=== PATIENT | male | born 1945 | race Asian ===

== ENCOUNTER 2017-03-24 07:35 | Outpatient (CLI) | payer BC ==
[2017-03-24 08:45] LABS: BASOPHILS # (AUTO) 0.1 /CMM (0.0-0.2); EOSINOPHILS # (AUTO) 0.7 /CMM (0.0-0.7); EOSINOPHILS % (AUTO) 7.2 % (0.0-6.0); HEMATOCRIT 39 % (39-51); HEMOGLOBIN 13.1 g/dL (13.5-17.5); LYMPHOCYTES # (AUTO) 2.4 /CMM (0.8-4.8); LYMPHOCYTES % (AUTO) 26.2 % (20.0-44.0); MEAN CORPUSCULAR HEMOGLOBIN 29 PG (26.0-33.0); MEAN CORPUSCULAR HGB CONC 33 g/dl (31.0-36.0); MEAN CORPUSCULAR VOLUME 87 fL (80-96); MONOCYTES # (AUTO) 0.7 /CMM (0.1-1.30); MONOCYTES % (AUTO) 7.5 % (2.0-12.0); NEUTROPHILS # (AUTO) 5.3 /CMM (1.8-8.9); NEUTROPHILS % (AUTO) 58.1 % (43.0-81.0); PLATELET COUNT (AUTO) 174 /CMM (150-450); RDW COEFFICIENT OF VARIATION 13.4 (11.5-15.0); RED BLOOD CELL COUNT(AUTO) 4.48 MIL/uL (4.5-6.0); WHITE BLOOD COUNT (AUTO) 9.1 K/uL (4.3-11.0)
[2017-03-24 08:57] LABS: ALANINE AMINOTRANSFERASE 62 U/L (12-78); ALBUMIN 3.7 g/dL (3.4-5.0); ALKALINE PHOSPHATASE 97 U/L (46-116); ASPARTATE AMINOTRANSFERASE 52 U/L (15-37); BILIRUBIN,TOTAL 0.8 mg/dL (0.2-1.0); CARBON DIOXIDE 26 mmol/L (21-32); CHLORIDE 105 mmol/L (98-107); CREATININE 0.9 mg/dL (0.6-1.3); GLUCOSE 102 mg/dL (74-106); POTASSIUM 3.9 mmol/L (3.5-5.1); SODIUM SERUM 140 mmol/L (136-145); UREA NITROGEN, BLOOD 12 mg/dL (7-18)
[2017-03-24 09:00] LABS: IRON, SERUM 130 ug/dl (50-175); TOTAL IRON BINDING CAPACITY 297 ug/dl (250-450)
[2017-03-24 09:19] LABS: CHOLESTEROL 143 mg/dL (<200); FERRITIN 561 ng/mL (8-388); HDL CHOLESTEROL 37 mg/dL (40-60); LDL 82 mg/dL (0-99); PROSTATE SPECIFIC ANTIGEN SCR 1.74 ng/mL (0.00-4.00); THYROID STIMULATING HORMONE 1.998 uIU/mL (0.358-3.74); TRIGLYCERIDES 93 mg/dL (30-150); URIC ACID 6.3 mg/dL (2.6-7.2)
[2017-03-24 09:27] LABS: APPEARANCE,URINE CLEAR (CLEAR); BILIRUBIN,URINE NEGATIVE (NEGATIVE); BLOOD, URINE TRACE-INTA Ery/uL (NEGATIVE); COLOR,URINE YELLOW (YELLOW); KETONES,URINE NEGATIVE (NEGATIVE); LEUKOCYTE ESTERASE ,URINE NEGATIVE (NEGATIVE); NITRITE, URINE NEGATIVE (NEGATIVE); PROTEIN,URINE NEGATIVE (NEGATIVE); UGLUCOSE NEGATIVE (NEGATIVE); UROBILINOGEN,URINE 0.2 EU/dL (0.2)
[2017-03-24 10:35] LABS: BACTERIA,URINE None seen /HPF (None Seen); RBC,URINE 0-2 /HPF (0-2); SQUAMOUS EPITHELIAL CELL,UR Few /HPF (None Seen); WBC,URINE NONE SEEN /HPF (0-3)
[2017-03-26 11:09] LABS: *TESTOSTERONE, FREE (DIRECT) 2.1 pg/mL (6.6-18.1)
== END 2017-03-24 23:59 | disposition home or self-care (01) ==
LOC: LAB 07:35
PROVIDERS: ATTEND Legal Medicine
DX: R79.89 Other specified abnormal findings of blood chemistry (principal); Z00.01 Encounter for general adult medical examination with abnormal findings
CPT/HCPCS: 36415; 80053-TC; 80061-TC; 81000-TC; 82728-TC; 82746; 83540-TC; 84153-TC; 84402-TC; 84439-TC; 84443-TC; 84550-TC; 85025-TC

== ENCOUNTER 2017-03-27 08:51 | Outpatient (CLI) | payer BC | END 2017-03-27 23:59 | disposition home or self-care (01) | LOC: CARD 08:51 | PROVIDERS: ATTEND Legal Medicine | DX: I10 Essential (primary) hypertension (principal); I51.7 Cardiomegaly; R09.89 Other specified symptoms and signs involving the circulatory and respiratory systems | CPT/HCPCS: 93307-TC; 93880-TC ==

== ENCOUNTER 2017-07-20 18:34 | Inpatient (IN) | payer BC ==
[~2017-07-20] VITALS: Ht 160 cm; Wt 65.8 kg
--- NOTE | 2017-07-20 18:57 | NUR ---
PT BIB FROM DR BOCANEGRA OFFICE: LEFT EYE BLURRY VISION NOVA. PT AOX3 RR EVEN AND UNLABORED. NO SOB NOTED. NAD NOTED. NO NVD AT THIS TIME. PT PLACED ON MONITOR WAITING FOR MD BHATT.
--- NOTE | 2017-07-20 18:58 | NUR ---
CALLED PHARM FOR IV MEDICATION, SPOKE TO
[2017-07-20] MEDS ORDERED: methylPREDNISolone SOD SUCC 1,000 MG in IV NS 0.9% 250 ML IV ONE (19:00)
--- NOTE | 2017-07-20 19:05 | NUR ---
VISUAL ACUITY: LEFT EYE UNABLE TO SEE. RIGHT EYE 20/30 BOTH EYES 20/30
--- NOTE | 2017-07-20 19:13 | NUR ---
LAB AT BEDSIDE FOR BLOOD DRAW.
[2017-07-20 19:18] LABS: BASOPHILS # (AUTO) 0.1 /CMM (0.0-0.2); BASOPHILS % (AUTO) 0.7 % (0.0-2.0); EOSINOPHILS # (AUTO) 0.7 /CMM (0.0-0.7); EOSINOPHILS % (AUTO) 7.9 % (0.0-6.0); HEMATOCRIT 41 % (39-51); HEMOGLOBIN 13.4 g/dL (13.5-17.5); LYMPHOCYTES # (AUTO) 2.5 /CMM (0.8-4.8); LYMPHOCYTES % (AUTO) 27.6 % (20.0-44.0); MEAN CORPUSCULAR HEMOGLOBIN 29 PG (26.0-33.0); MEAN CORPUSCULAR HGB CONC 33 g/dl (31.0-36.0); MEAN CORPUSCULAR VOLUME 88 fL (80-96); MONOCYTES # (AUTO) 0.7 /CMM (0.1-1.30); MONOCYTES % (AUTO) 8.2 % (2.0-12.0); NEUTROPHILS # (AUTO) 5.1 /CMM (1.8-8.9); NEUTROPHILS % (AUTO) 55.6 % (43.0-81.0); PLATELET COUNT (AUTO) 195 /CMM (150-450); RDW COEFFICIENT OF VARIATION 12.4 (11.5-15.0); RED BLOOD CELL COUNT(AUTO) 4.64 MIL/uL (4.5-6.0); WHITE BLOOD COUNT (AUTO) 9.1 K/uL (4.3-11.0)
[2017-07-20 19:26] LABS: CALCIUM, SERUM 8.8 mg/dL (8.5-10.1); CARBON DIOXIDE 27 mmol/L (21-32); CHLORIDE 102 mmol/L (98-107); CREATININE 0.8 mg/dL (0.6-1.3); GLUCOSE 125 mg/dL (74-106); POTASSIUM 3.4 mmol/L (3.5-5.1); SODIUM SERUM 136 mmol/L (136-145); UREA NITROGEN, BLOOD 13 mg/dL (7-18)
[2017-07-20] MEDS ORDERED: ASPI-605 PO (19:56)
[2017-07-20] MEDS ORDERED: SIMV20TA6 PO (19:56)
--- NOTE | 2017-07-20 20:04 | NUR ---
ORDERS RECEIVED BY DR ABRAHAM.
--- NOTE | 2017-07-20 20:38 | NUR ---
REPORT GIVEN TO DONITA SIMS FOR
--- NOTE | 2017-07-20 20:44 | NUR ---
PT TRANSFERRED TO [facility] 208-2 VIA WC
--- NOTE | 2017-07-20 20:45 | NUR ---
ADMISSION NOTES RECEIVED PATIENT FROM ER ACCOMPANIED BY HIS WITH DX OF LEFT EYE BLURRED VISION. NO ACUTE DISTRESS, RESP EVEN & NON LABORED. NO C/O EYE PAIN NOTED AT THIS TIME, BUT HAS BLURRED VISION TO READ TO LEFT EYE. AMBULATORY, USES BRP. EXPLAINED ABOUT FALL PREVENTION & BED REST MUCH POSSIBLE FOR SAFETY. PATIENT VERBALIZED UNDERSTANDING. IV ACCESS TO LEFT WRIST, INTACT PATENT. BODY ASSESSMENT DONE, MILD EDEMA TO RIGHT FOOT NOTED. ELEVATED THE EXTREMITY. INVENTORY ACCOUNTED FOR & DOCUMENTED. ALL NEEDS ATTENDED TO & MET. BED IN LOW LOCKED POSITION. CALL LIGHT WITHIN REACH. AT BEDSIDE. WILL CONTINUE TO MONITOR.
[2017-07-20 20:50] VITALS: BP 137/74
[2017-07-20] MEDS ORDERED: ONDANSETRON HCL/PF 4 MG/2 ML VIAL IVP PRN (21:00)
[2017-07-20] MEDS ORDERED: HYDROCODONE/APAP 5/325MG 1 EACH TABLET PO PRN (21:00)
[2017-07-20] MEDS ORDERED: ACETAMINOPHEN 325 MG TABLET PO PRN (21:00)
[2017-07-20] MEDS: IV NS 0.9% 1,000 ML IV PRN (22:00)
--- NOTE | 2017-07-20 22:00 | NUR ---
MS RN NOTES IV FLUIDS STARTED ORDERED BY MD. IV CATHETER PATENCY CHECKED WITH NS. NO S/S OF INFILTRATION/INFECTION NOTED. WILL MONITOR CLOSELY.
[2017-07-21] MEDS: methylPREDNISolone SOD SUCC 125 MG/2ML VIAL IV SCH ×5 (00:10→23:56)
--- NOTE | 2017-07-21 03:35 | NUR ---
MS RN NOTES PATIENT NOTED TO BE SLEEPING COMFORTABLY. IV NS RUNNING AT 75 ML/HR, NO S/S OF INFECTION NOTED AT IV SITE. NO C/O PAIN NOTED.
--- NOTE | 2017-07-21 06:05 | NUR ---
RN NOTES: LEFT A MESSAGE , MRI EXT [id number], UNABLE TO PLACE THE ORDER, NOT IN THE SELECTION, LEFT A MESSAGE INFORM PER MD ORDER, PT WILL HAVE MRI OF THE LEFT EYE WITH CONTRAST
--- NOTE | 2017-07-21 06:26 | NUR ---
RN NOTES: CONTACTED [facility] MRI ORDER, BUT THEY STATED THEY DO NOT KNOW HOW TO ORDER IT, LEFT A MESSAGE AGAIN IN MRI DEPT, AWAITING FOR CALL BACK
[2017-07-21 06:39] LABS: HEMATOCRIT 41 % (39-51); HEMOGLOBIN 13.5 g/dL (13.5-17.5); LYMPHOCYTES # (AUTO) 1.1 /CMM (0.8-4.8); LYMPHOCYTES % (AUTO) 15.9 % (20.0-44.0); MEAN CORPUSCULAR HEMOGLOBIN 29 PG (26.0-33.0); MEAN CORPUSCULAR HGB CONC 33 g/dl (31.0-36.0); MEAN CORPUSCULAR VOLUME 88 fL (80-96); MONOCYTES % (AUTO) 0.4 % (2.0-12.0); NEUTROPHILS # (AUTO) 5.9 /CMM (1.8-8.9); NEUTROPHILS % (AUTO) 83.7 % (43.0-81.0); PLATELET COUNT (AUTO) 185 /CMM (150-450); RDW COEFFICIENT OF VARIATION 13.1 (11.5-15.0); RED BLOOD CELL COUNT(AUTO) 4.62 MIL/uL (4.5-6.0)
--- NOTE | 2017-07-21 06:40 | NUR ---
rn notes: dami from mri came to help place the order for mri left eye with contrast
[2017-07-21 06:45] LABS: CARBON DIOXIDE 23 mmol/L (21-32); CHLORIDE 104 mmol/L (98-107); CREATININE 0.9 mg/dL (0.6-1.3); GLUCOSE 152 mg/dL (74-106); POTASSIUM 3.9 mmol/L (3.5-5.1); SODIUM SERUM 139 mmol/L (136-145); UREA NITROGEN, BLOOD 13 mg/dL (7-18)
--- NOTE | 2017-07-21 07:00 | NUR ---
MS RN CLOSING NOTES PATIENT SLEPT WELL AT NIGHT. NO C/O PAIN TO LEFT EYE, NO C/O OTHER PAIN NOTED. ON IV FLUIDS NS 75 ML/HR, IV ACCESS INTACT PATENT. ON BED REST PRN. AMBULATORY, CONTINENT & USES BRP. HIGH SCHOOL COORDINATOR WILL F/U WITH PATIENT AT [facility] PER MD NOTES. MRI LEFT EYE WILL BE DONE WITH CONTRAST TODAY. PT IS AWARE. BED IN LOW LOCKED POSITION. CALL LIGHT WITHIN REACH. WILL ENDORSE TO AM SHIFT FOR CONTINUITY OF CARE.
--- NOTE | 2017-07-21 07:23 | NUR ---
RN OPEN NOTES RECEIVED REPORT FROM PAWN SHOP KEEPER NURSE. PATIENT IS ALERT AND ORIENTED TO NAME, PLACE AND TIME. LEFT EYE STILL BLURRY. PUPILS ARE EQUAL, ROUND AND REACTED TO LIGHT. PUPILS SIZE 1MM. AT BEDSIDE. NO SIGNS AND SYMPTOMS OF DISTRESS. BED IN LOW POSITION, LOCKED AND TWO SIDE RAILS ARE UP. CALL LIGHT WITHIN REACH. WILL CONTINUE TO ASSESS AND MONITOR PATIENT THROUGHOUT MY SHIFT
[2017-07-21 08:00] VITALS: BP 125/70
[2017-07-21] MEDS: PANTOPRAZOLE 40 MG VIAL IV SCH (08:59)
--- NOTE | 2017-07-21 10:13 | NUR ---
PATIENT IS OFF THE FLOOR FRO MRI
--- NOTE | 2017-07-21 11:45 | NUR ---
PATIENT RETURNED TO UNIT
[2017-07-21] MEDS: IV NS 0.9% 1,000 ML IV PRN ×2 (11:49→23:56)
[2017-07-21] MEDS ORDERED: GADOVERSETAMIDE 5 MMOL/10 ML VIAL ONE (13:16)
[2017-07-21] MEDS ORDERED: GADOVERSETAMIDE 2.5 MMOL/5 ML VIAL ONE (13:16)
[2017-07-21 16:00] VITALS: BP 99/62
--- NOTE | 2017-07-21 16:49 | NUR ---
DR FORBES AT BEDSIDE
--- NOTE | 2017-07-21 17:10 | NUR ---
DR FORBES EVALUATED PATIENT AND ORDERS ARE THE FOLLOWIN. OBTAIN CONSENT TO: LEFT TEMPORAL ARTERY BIOPSY ON 07/24/2017 (24 HOURS PRIOR TO SURGERY) CONSENT IS IN THE CHART, PLEASE HAVE THE PATIENT SIGNED ON MONDAY 2. NPO SINCE MIDNIGHT 07/24 EXCEPT MEDS 3. IV NS AT 75ML/HR FROM MIDNIGHT 07/24 4. IF PATIENT DISCHARGED - GO TO ADMITTING 07/24 5. BILATERALLY CAROTID DUPLEX
--- NOTE | 2017-07-21 17:13 | NUR ---
DR ABRAHAM PAGED TO RECONCILE HOME MEDICATION
--- NOTE | 2017-07-21 18:35 | NUR ---
CALLED DR ABRAHAM OFFICE. REFEREED TO [facility]
--- NOTE | 2017-07-21 18:38 | NUR ---
CALLED [facility]. DR ROSS IS TMD TEACHER. WILL PAGE DR ROSS REGARDING HOME MEDS
--- NOTE | 2017-07-21 18:43 | NUR ---
RN CLOSING NOTES PATIENT IS IN BED, ALERT AND ORIENTED TO NAME, PLACE AND TIME. AT BEDSIDE. NO SIGNS AND SYMPTOMS OF DISTRESS. ON IV FLUIDS NS 75 ML/HR, IV ACCESS INTACT PATENT. ON BED REST PRN. AMBULATORY, CONTINENT & USES BRP. CAROTID DUPLEX INAGING PENDING. SURGERY ON MONDAY (ORDERS DOCUMENTED AND IN THE CHART FROM DR FORBES) BED IN LOW LOCKED POSITION. CALL LIGHT WITHIN REACH. WILL ENDORSE TO PM SHIFT FOR CONTINUITY OF CARE.
--- NOTE | 2017-07-21 18:43 | NUR ---
PAGED DR ROSS
--- NOTE | 2017-07-21 19:00 | NUR ---
MS RN OPENING NOTES RECEIVE PT IN BED, PT A/O X4, PT NO ACUTE DISTRESS NOTED. TOLERATING ROOM AIR 98% BREATHING EVEN AND UNLABORED, HEAD OF BED ELEVATED FOR BETTER LUNG EXPANSION AND GOOD CIRCULATION. SAFETY MEASURES IN PLACE, BED LOCKED AND IN LOWEST POSITION, CALL LIGHT IN REACH. WILL CONTINUE TO MONITOR.
--- NOTE | 2017-07-21 19:11 | NUR ---
PAGED DR ENG ([facility] PLASTICS TECHNICIAN) TO RECONCILE PATIENT HOME MEDS
[2017-07-21 20:00] VITALS: BP 101/56
[2017-07-22] MEDS: methylPREDNISolone SOD SUCC 125 MG/2ML VIAL IV SCH ×4 (05:30→23:44)
--- NOTE | 2017-07-22 06:37 | NUR ---
MS RN CLOSING NOTES ASLEEP AND EASILY AWAKEN, HEAD OF BED ELEVATED FOR BETTER LUNG EXPANSION AND GOOD CIRCULATION, IN STABLE CONDITION, TOLERATING ROOM AIR 02 SAT 98% NOT IN RESPIRATORY DISTRESS, GOOD SKIN CARE PROVIDED. RESPIRATIONS EVEN AND UNLABORED, AFEBRILE, NEEDS ATTENDED AND ANTICIPATED, KEPT CLEAN AND DRY AND COMFORTABLE, NURSING CARE RENDERED. FREQUENT VISUAL CHECK DONE EVERY 2 HOURS FOR SAFETY SAFE HAZARD FREE ENVIRONMENT PROVIDED. CALL LIGHT WITHIN EASY TO REACH, ON LOW BED AT ALL TIMES TO ENSURE SAFETY, WILL ENDORSE TO THE NEXT SHIFT CONTINUE PLAN OF CARE
--- NOTE | 2017-07-22 07:30 | NUR ---
RN AM NOTES RECEIVE PT IN BED, PT A/O X4, PT NO ACUTE DISTRESS NOTED. TOLERATING ROOM AIR, BREATHING EVEN AND UNLABORED, DENIES PAIN, NS AT 75 ML/HR INFUSING WELL TO L WRIST, SITE CLEAR, CARDIAC DIET, AMBULATES, STEADY GAIT, SAFETY MEASURES IN PLACE, BED LOCKED AND IN LOWEST POSITION, CALL LIGHT IN REACH. WILL CONTINUE TO MONITOR.
[2017-07-22 08:00] VITALS: BP 110/62
[2017-07-22] MEDS: PANTOPRAZOLE 40 MG VIAL IV SCH (08:56)
--- NOTE | 2017-07-22 09:30 | NUR ---
MS RN NOTES DUE MEDS GIVEN.
[2017-07-22] MEDS: IV NS 0.9% 1,000 ML IV PRN (12:28)
[2017-07-22 16:00] VITALS: BP_SYST 90; BP_DIAS 42; BP_DIAS 45
[2017-07-22] MEDS ORDERED: IV NS 0.9% 500 ML IV ONE (16:30)
[2017-07-22] MEDS ORDERED: IV NS 0.9% 500 ML BAG IV ONE (16:30)
[2017-07-22 17:18] VITALS: BP 103/61
--- NOTE | 2017-07-22 17:19 | NUR ---
RN NOTES PATIENT BP HAS STABILIZED BACK TO BASELINE AFTER 500ML BOLUS.
[2017-07-22 18:00] VITALS: BP 103/61
--- NOTE | 2017-07-22 19:00 | NUR ---
MS RN NOTES PATIENT IS RESTING COMFORTABLY. NOT IN ANY DISTRESS. AT BEDSIDE. DUE MEDS GIVEN. ALL NEEDS MET. NO OTHER SIGNIFICANT CHANGE IN CONDITION. WILL ENDORSE TO NEXT SHIFT FOR JOSE.
--- NOTE | 2017-07-22 19:00 | NUR ---
MS RN OPENING NOTES RECEIVE PT IN BED, PT A/O X 4, TOLERATING ROOM AIR 100% HEAD OF BED ELEVATED FOR BETTER LUNG EXPANSION AND GOOD CIRCULATION. BREATHING EVEN AND UNLABORED, IN STALE CONDITION SAFETY MEASURES IN PLACE, BED LOCKED AND IN LOWEST POSITION, CALL LIGHT IN REACH. WILL CONTINUE TO MONITOR.
[2017-07-22 20:00] VITALS: BP 108/55
[2017-07-22 20:02] VITALS: BP 108/55
[2017-07-23] MEDS: IV NS 0.9% 1,000 ML IV PRN ×2 (03:07→16:19)
[2017-07-23 05:20] VITALS: BP 107/61
[2017-07-23] MEDS: methylPREDNISolone SOD SUCC 125 MG/2ML VIAL IV SCH ×3 (05:29→17:07)
--- NOTE | 2017-07-23 06:40 | NUR ---
MS RN CLOSING NOTES ASLEEP IN BED, COMFORTABLY . EASILY AWAKEN, HEAD OF BED ELEVATED FOR BETTER LUNG EXPANSION AND GOOD CIRCULATION, TOLERATING ROOM AIR 02 SAT 100% IN STABLE CONDITION, NOT IN RESPIRATORY DISTRESS, RESPIRATIONS EVEN AND UNLABORED, GOOD SKIN CARE PROVIDED, KEPT CLEAN AND DRY AND COMFORTABLE, AFEBRILE, NEEDS ATTENDED AND ANTICIPATED, NURSING CARE RENDERED. FREQUENT VISUAL CHECK DONE EVERY 2 HOURS. SAFETY SAFE HAZARD FREE ENVIRONMENT PROVIDED. CALL LIGHT WITHIN EASY TO REACH, ON LOW BED AT ALL TIMES TO ENSURE SAFETY, WILL ENDORSE TO THE NEXT SHIFT CONTINUE PLAN OF CARE
[2017-07-23 07:19] LABS: EOSINOPHILS # (AUTO) 0.1 /CMM (0.0-0.7); EOSINOPHILS % (AUTO) 0.3 % (0.0-6.0); HEMATOCRIT 37 % (39-51); HEMOGLOBIN 12.1 g/dL (13.5-17.5); LYMPHOCYTES % (AUTO) 6.2 % (20.0-44.0); MEAN CORPUSCULAR HEMOGLOBIN 29 PG (26.0-33.0); MEAN CORPUSCULAR HGB CONC 33 g/dl (31.0-36.0); MEAN CORPUSCULAR VOLUME 90 fL (80-96); MONOCYTES # (AUTO) 0.1 /CMM (0.1-1.30); MONOCYTES % (AUTO) 0.5 % (2.0-12.0); NEUTROPHILS # (AUTO) 15.1 /CMM (1.8-8.9); RDW COEFFICIENT OF VARIATION 13.4 (11.5-15.0); RED BLOOD CELL COUNT(AUTO) 4.16 MIL/uL (4.5-6.0); WHITE BLOOD COUNT (AUTO) 16.2 K/uL (4.3-11.0)
[2017-07-23 07:23] LABS: CARBON DIOXIDE 23 mmol/L (21-32); CHLORIDE 109 mmol/L (98-107); CREATININE 0.8 mg/dL (0.6-1.3); GLUCOSE 122 mg/dL (74-106); MAGNESIUM 2.3 mg/dL (1.8-2.4); PHOSPHORUS 2.7 mg/dL (2.5-4.9); POTASSIUM 3.7 mmol/L (3.5-5.1); SODIUM SERUM 142 mmol/L (136-145); UREA NITROGEN, BLOOD 16 mg/dL (7-18)
[2017-07-23 08:00] VITALS: BP 141/68
[2017-07-23] MEDS: PANTOPRAZOLE 40 MG VIAL IV SCH (08:53)
[2017-07-23 09:18] LABS: PLATELET COUNT (AUTO) 254 /CMM (150-450)
--- NOTE | 2017-07-23 09:30 | NUR ---
MS RN NOTES DUE MEDS GIVEN.
[2017-07-23 16:00] VITALS: BP 113/58
[2017-07-23 18:00] VITALS: BP 113/58
--- NOTE | 2017-07-23 18:26 | NUR ---
MS RN CLOSING NOTES PATIENT IS RESTING COMFORTABLY. NOT IN ANY DISTRESS. AT BEDSIDE. DUE MEDS GIVEN. ALL NEEDS MET. NO OTHER SIGNIFICANT CHANGE IN CONDITION. WILL ENDORSE TO NEXT SHIFT FOR JOSE. NPO POST MIDNIGHT. FOR TEMPORAL BIOPSY IN AM. CONSENT SIGNED.
--- NOTE | 2017-07-23 19:00 | NUR ---
MS RN OPENING NOTES PT IN BED RESTING, PT A/O X 4, IN STABLE CONDITION. TOLERATING ROOM AIR 100% BREATHING EVEN AND UNLABORED, SAFETY MEASURES IN PLACE, BED LOCKED AND IN LOWEST POSITION, CALL LIGHT IN REACH. WILL CONTINUE TO MONITOR.
[2017-07-23 20:00] VITALS: BP 127/48
[2017-07-24] MEDS: methylPREDNISolone SOD SUCC 125 MG/2ML VIAL IV SCH ×4 (00:28→21:17)
[2017-07-24] MEDS: IV NS 0.9% 1,000 ML IV PRN ×2 (05:29→23:25)
--- NOTE | 2017-07-24 06:33 | NUR ---
MS RN CLOSING NOTES PLACE IN BED ASLEEP NOW BUT EASILY AWAKEN. STABLE CONDITION. HEAD OF BED ELEVATED FOR BETTER LUNG EXPANSION AND GOOD CIRCULATION, MAINTAINS NPO AT MIDNIGHT TOLERATING ROOM AIR 02 SAT 100% RESPIRATIONS EVEN AND UNLABORED, NOT IN RESPIRATORY DISTRESS, AFEBRILE, KEPT CLEAN AND DRY AND COMFORTABLE, NEEDS ATTENDED AND ANTICIPATED, NURSING CARE RENDERED. SAFETY SAFE HAZARD FREE ENVIRONMENT PROVIDED. CALL LIGHT WITHIN EASY TO REACH, ON LOW BED AT ALL TIMES TO ENSURE SAFETY, WILL ENDORSE TO THE NEXT SHIFT CONTINUE POC.
[2017-07-24 07:19] LABS: BASOPHILS % (AUTO) 0.1 % (0.0-2.0); EOSINOPHILS % (AUTO) 0.3 % (0.0-6.0); HEMATOCRIT 37 % (39-51); HEMOGLOBIN 12.2 g/dL (13.5-17.5); LYMPHOCYTES # (AUTO) 1.2 /CMM (0.8-4.8); LYMPHOCYTES % (AUTO) 8.6 % (20.0-44.0); MEAN CORPUSCULAR HEMOGLOBIN 29 PG (26.0-33.0); MEAN CORPUSCULAR HGB CONC 33 g/dl (31.0-36.0); MEAN CORPUSCULAR VOLUME 89 fL (80-96); MONOCYTES # (AUTO) 0.3 /CMM (0.1-1.30); MONOCYTES % (AUTO) 2.3 % (2.0-12.0); NEUTROPHILS # (AUTO) 12.3 /CMM (1.8-8.9); NEUTROPHILS % (AUTO) 88.7 % (43.0-81.0); PLATELET COUNT (AUTO) 170 /CMM (150-450); RDW COEFFICIENT OF VARIATION 13.5 (11.5-15.0); RED BLOOD CELL COUNT(AUTO) 4.16 MIL/uL (4.5-6.0); WHITE BLOOD COUNT (AUTO) 13.9 K/uL (4.3-11.0)
--- NOTE | 2017-07-24 07:19 | NUR ---
MS RN OPENING NOTES RECEIVED PT AWAKE IN BED IN NO ACUTE SIGNS OF DISTRESS WITH AT BEDSIDE. A/O X4, VERBALLY RESPONSIVE, NO C/O PAIN OR DISCOMFORTS AT THIS TIME. ON ROOM AIR, BREATHING EVEN AND UNLABORED. IV ACCESS ON LEFT AC INTACT AND PATENT WITH IVF OF NS @ 75 ML/HR INFUSING WELL, NO SIGNS OF INFILTRATION NOTED. SAFETY MEASURES IN PLACED. BED LOCKED AND IN LOWEST POSITION, CALL LIGHT IN REACH. WILL CONTINUE TO MONITOR PT ACCORDINGLY.
[2017-07-24 07:42] LABS: CALCIUM, SERUM 7.6 mg/dL (8.5-10.1); CARBON DIOXIDE 24 mmol/L (21-32); CHLORIDE 108 mmol/L (98-107); CREATININE 0.8 mg/dL (0.6-1.3); GLUCOSE 118 mg/dL (74-106); MAGNESIUM 2.3 mg/dL (1.8-2.4); PHOSPHORUS 2.9 mg/dL (2.5-4.9); POTASSIUM 3.6 mmol/L (3.5-5.1); SODIUM SERUM 142 mmol/L (136-145); UREA NITROGEN, BLOOD 15 mg/dL (7-18)
[2017-07-24 08:00] VITALS: BP 131/88
[2017-07-24] MEDS: ASPIRIN EC 81 MG TABLET.DR PO SCH (09:00)
[2017-07-24] MEDS: PANTOPRAZOLE 40 MG VIAL IV SCH (09:00)
[2017-07-24 09:01] LABS: CHOLESTEROL 137 mg/dL (<200); HDL CHOLESTEROL 46 mg/dL (40-60); LDL 79 mg/dL (0-99); TRIGLYCERIDES 92 mg/dL (30-150)
--- NOTE | 2017-07-24 12:05 | NUR ---
RN NOTES PT FOR MRI OF BRAIN WITH OR WITHOUT CONTRAST. EXPLAINED PROCEDURE TO PT AND VERBALIZED UNDERSTANDING. CONSENT AND MRI CHECKLIST SIGNED BY PT.
--- NOTE | 2017-07-24 15:27 | NUR ---
RN NOTES PT TRANSPORTED FROM UNIT TO O.R./SURGERY VIA HIS BED BY O.R. STAFF FOR TEMPORAL ARTERY BIOPSY BY DR YU. WILL BE WAITING IN PT ROOM.
[2017-07-24] MEDS ORDERED: MIDAZOLAM HCL 2 MG/2ML VIAL ONE (16:21)
[2017-07-24] MEDS ORDERED: FENTANYL PF 100MCG/2ML AMPUL ONE (16:21)
[2017-07-24] MEDS ORDERED: LIDOCAINE 2% 50 ML MDV IJ ONE (17:28)
[2017-07-24 17:45] VITALS: BP 131/74
--- NOTE | 2017-07-24 17:50 | NUR ---
RN NOTES PT RETURNED FROM SURGERY S/P TEMPORAL ARTERY BIOPSY. AWAKE, A/O X4 IN NO ACUTE SIGNS OF DISTRESS. V/S TAKEN BP 131/71, R 18, P 52, T 97.2 AND SP02 97%. INCISION TO LEFT TEMPORAL TO KEEP OPEN TO AIR PER O.R. NURSE. PHOTO TAKEN AND FILED ON CHART. DR YU ORDERED TO RESUME ALL PRE-OP MEDS, DIET AND GIVE NORCO 5/325MH Q6HRS PRN FOR PAIN. AT BEDSIDE AND AWARE WILL CONTINUE TO MONITOR.
--- NOTE | 2017-07-24 18:10 | NUR ---
RN NOTES MRI OF BRAIN WITH OR WITHOUT OF BRAIN TO BE DONE TOMORROW PER MRI TEACH. MANUFACTURING MILLWRIGHT SPOKE TO PT AND STATED HE WAS TIRED TO HAVE THE MRI DONE AT THIS TIME. MANUFACTURING MILLWRIGHT CALLED AND LEFT MESSAGE TO DR MAHMOOD. WILL CONTINUE TO MONITOR
[2017-07-24 18:15] VITALS: BP 134/76
--- NOTE | 2017-07-24 18:28 | NUR ---
RN NOTES VITAL SIGNS MONITORED CLOSELY AND WRITTEN ON VITALS SIGNS SHEET. V/S SHEET WILL BE FILED ON CHART AFTER. WILL ENDORSED TO SEEDLING SORTER NURSE TO CONTINUE MONITORING PT.
--- NOTE | 2017-07-24 18:51 | NUR ---
MS RN CLOSING NOTES PT ASLEEP IN BED AT THIS TIME, EASILY AWAKENS WITH AT BEDSIDE. A/O X4, VERBALLY RESPONSIVE, NO C/O PAIN AT THIS TIME. ALL NEEDS AND CARE ATTENDED WELL. S/P BIOPSY OF TEMPORAL ARTERY, NO BLEEDING OR SWELLING TO INCISIONAL SITE NOTED. ON ROOM AIR, TOLERATING WELL WITH NO SOB NOTED. IV ACCESS ON LEFT AC INTACT AND PATENT WITH IVF OF NS @ 75 ML/HR INFUSING WELL, NO SIGNS OF INFILTRATION NOTED. ALL SAFETY MEASURES KEPT IN PLACED. BED LOCKED AND IN LOWEST POSITION, CALL LIGHT IN REACH. WILL ENDORSED TO OPERATIONS COORDINATOR NURSE FOR JOSE..
--- NOTE | 2017-07-24 19:45 | NUR ---
MS/RN OPENING NOTES PT RECEIVED RESTING IN BED. SEMI FOWLERS POSITION. EYES CLOSED BUT AROUSABLE TO NAME. AT BEDSIDE. ON 1L O2 VIA NC, BREATHING EVEN AND UNLABORED. S/P BIOPSY OF LEFT TEMPORAL ARTERY. INCISION OPEN TO AIR, CLEAN AND DRY. NO SIGNS OF BLEEDING OR SWELLING NOTED. PT DENIES PAIN. BED IN LOW/LOCKED POSITION WITH CALL LIGHT IN REACH. IV TO LAC RUNNING IVF ORDERED. SIDE RAILS UPX3. WILL CONTINUE TO MONITOR
[2017-07-24 20:00] VITALS: BP 133/76
[2017-07-24 20:46] VITALS: BP 133/76
[2017-07-25] MEDS: methylPREDNISolone SOD SUCC 125 MG/2ML VIAL IV SCH ×3 (05:18→21:37)
[2017-07-25 06:46] LABS: BASOPHILS % (AUTO) 0.1 % (0.0-2.0); HEMATOCRIT 37 % (39-51); HEMOGLOBIN 12.3 g/dL (13.5-17.5); LYMPHOCYTES # (AUTO) 1.3 /CMM (0.8-4.8); LYMPHOCYTES % (AUTO) 11.5 % (20.0-44.0); MEAN CORPUSCULAR HEMOGLOBIN 30 PG (26.0-33.0); MEAN CORPUSCULAR HGB CONC 34 g/dl (31.0-36.0); MEAN CORPUSCULAR VOLUME 88 fL (80-96); MONOCYTES # (AUTO) 0.4 /CMM (0.1-1.30); MONOCYTES % (AUTO) 3.5 % (2.0-12.0); NEUTROPHILS # (AUTO) 9.9 /CMM (1.8-8.9); NEUTROPHILS % (AUTO) 84.9 % (43.0-81.0); PLATELET COUNT (AUTO) 167 /CMM (150-450); RDW COEFFICIENT OF VARIATION 13.6 (11.5-15.0); RED BLOOD CELL COUNT(AUTO) 4.15 MIL/uL (4.5-6.0); WHITE BLOOD COUNT (AUTO) 11.7 K/uL (4.3-11.0)
[2017-07-25 07:13] LABS: CALCIUM, SERUM 7.6 mg/dL (8.5-10.1); CARBON DIOXIDE 23 mmol/L (21-32); CHLORIDE 106 mmol/L (98-107); CREATININE 0.8 mg/dL (0.6-1.3); GLUCOSE 136 mg/dL (74-106); MAGNESIUM 2.4 mg/dL (1.8-2.4); POTASSIUM 3.6 mmol/L (3.5-5.1); SODIUM SERUM 141 mmol/L (136-145); UREA NITROGEN, BLOOD 21 mg/dL (7-18)
--- NOTE | 2017-07-25 07:15 | NUR ---
MS/RN CLOSING NOTES PT AWAKE, ON 2L O2 VIA NC, BREATHING EVEN AND UNLABORED. AT BEDSIDE. DENIES SOB OR PAIN. LEFT TEMPORAL INCISION SITE LEFT OPEN TO AIR. NO ACTIVE BLEEDING OR SWELLING NOTED. CONSENT AND MRI CHECKLIST SIGNED AND FLAGGED IN CHART. IV TO LEFT AC PATENT AND INTACT RUNNING IVF ORDERED. MADE PT COMFORTABLE DURING SHIFT. NO SIGNIFICANT CHANGES OVERNIGHT. ALL NEEDS MET. BED IN LOW/LOCKED POSITION WITH CALL LIGHT IN REACH. SIDE RAILS UPX2. WILL ENDORSE TO AM SHIFT JOSE.
--- NOTE | 2017-07-25 07:29 | NUR ---
MS RN OPENING NOTES RECEIVED PT AWAKE IN BED WITH AT BEDSIDE. HOB ELEVATED. A/O X4, VERBALLY RESPONSIVE, NO NO C/O PAIN OR DISCOMFORTS AT THIS TIME. INCISION SITE ON LEFT TEMPORAL OPEN TO AIR, NO ACTIVE BLEEDING OR SWELLING NOTED. PT FOR MRI OF BRAIN W OR W/O CONTRAST TODAY. ON ROOM AIR, BREATHING EVEN AND UNLABORED. IV ACCESS ON LEFT AC INTACT AND PATENT WITH IVF OF NS @ 75 ML/HR INFUSING WELL, NO SIGNS OF INFILTRATION NOTED. SAFETY MEASURES IN PLACED. BED LOCKED AND IN LOWEST POSITION WITH SIDE-RAILS UP X2. CALL LIGHT WITHIN REACH. WILL CONTINUE TO MONITOR PT ACCORDINGLY.
[2017-07-25 08:00] VITALS: BP 136/76
[2017-07-25] MEDS: ASPIRIN EC 81 MG TABLET.DR PO SCH (08:45)
[2017-07-25] MEDS: PANTOPRAZOLE 40 MG VIAL IV SCH (08:45)
--- NOTE | 2017-07-25 09:48 | NUR ---
RN NOTES PATIENT WENT DOWN FOR MRI OF BRAIN VIA WHEELCHAIR ACCOMPANIED BY PROJECT ACCOUNT MANAGER.
[2017-07-25 16:00] VITALS: BP 126/71
--- NOTE | 2017-07-25 18:38 | NUR ---
MS RN CLOSING NOTES PT RESTING IN BED AT MODERATE HIGH BACKREST WITH AT BEDSIDE. A/O X4, NO VERBALIZATION OF PAIN THROUGHOUT THE DAY. INCISIONAL SITE ON LEFT TEMPORAL ARTERY KEEP OPEN TO AIR, NO BLEEDING OR ACTIVE BLEEDING NOTED. ON ROOM AIR, TOLERATING WELL WITH NO SOB NOTED. IV ACCESS ON LEFT AC INTACT AND PATENT. ALL SAFETY MEASURES KEPT IN PLACED. BED LOCKED AND IN LOWEST POSITION, CALL LIGHT IN REACH. ALL NEEDS AND CARE ATTENDED WELL. WILL ENDORSED TO BUNK HOUSE WORKER NURSE FOR JOSE..
--- NOTE | 2017-07-25 19:43 | NUR ---
MS/RN OPENING NOTES PT AWAKE, SEMI FOWLERS IN BED. AT BEDSIDE. ON ROOM AIR, BREATHING EVEN AND UNLABORED. DENIES SOB OR PAIN. LEFT TEMPORAL INCISION SITE LEFT OPEN TO AIR, NO ACTIVE BLEEDING OR SWELLING NOTED. IV TO LAC PATENT AND INTACT. BED IN LOW/LOCKED POSITION WITH CALL LIGHT IN REACH. SIDE RAILS XUP2. WILL CONTINUE TO MONITOR
[2017-07-25 20:00] VITALS: BP 132/68
[2017-07-26] MEDS: methylPREDNISolone SOD SUCC 125 MG/2ML VIAL IV SCH ×2 (05:40→12:17)
--- NOTE | 2017-07-26 06:50 | NUR ---
MS/RN CLOSING NOTES PT ASLEEP, EASILY AROUSABLE. AT BEDSIDE. ON ROOM AIR, BREATHING EVEN AND UNLABORED. NO COMPLAINTS OF SOB OR PAIN. INCISION TO LEFT TEMPORAL SHOWS NO ACTIVE SIGNS OF BLEEDING OR SWELLING. MADE PT COMFORTABLE DURING SHIFT. ALL NEEDS MET. NO SIGNIFICANT CHANGES OVERNIGHT. BED IN LOW/LOCKED POSITION WITH CALL LIGHT IN REACH. SIDE RAILS UPX2. WILL ENDORSE TO AM SHIFT JOSE.
[2017-07-26 08:00] VITALS: BP 140/71
[2017-07-26] MEDS: ASPIRIN EC 81 MG TABLET.DR PO SCH (08:13)
[2017-07-26] MEDS: PANTOPRAZOLE 40 MG VIAL IV SCH (08:13)
[2017-07-26] MEDS ORDERED: FLU VACC QS 2017-18(36MOS+)/PF 0.5 ML DISP.SYRIN IM ONE (12:30)
[2017-07-26] MEDS ORDERED: PNEUMOCOCCAL 23-VAL P-SAC VAC 0.5 ML VIAL SQ ONE (12:30)
[2017-07-26] MEDS ORDERED: GADOVERSETAMIDE 2.5 MMOL/5 ML VIAL IJ ONE (12:58)
--- NOTE | 2017-07-26 15:19 | NUR ---
Patient is alert and oriented throughout the shift, no c/o pain, not in any form of distress, remain afebrile. Reviewed discharge instructions with patient and both verbalized full understanding of all teachings including medication management, incision care on the left temporal area, and follow-up care with Dr. Napier and Dr. Nunez for biopsy result. Discharge papers and prescription given to patient. Saline lock removed on the left hand with catheter tip intact, no redness, no swelling seen on the IV site. All belongings with patient and he denies any missing items. Accompanied to the lobby and transported by private care.
== END 2017-07-26 15:30 | disposition home or self-care (01) | DRG 517 ==
LOC: ER 18:37 → MEDSG2 20:25
PROVIDERS: ADMIT Legal Medicine; ATTEND Legal Medicine
PROC: 03BT0ZX Excision of Left Temporal Artery, Open Approach, Diagnostic (ICD-10-PCS; principal; 2017-07-24 16:40)
DX: M31.6 Other giant cell arteritis (principal); E78.5 Hyperlipidemia, unspecified; H54.62 Unqualified visual loss, left eye, normal vision right eye; I10 Essential (primary) hypertension; I73.9 Peripheral vascular disease, unspecified; M10.9 Gout, unspecified; Z79.82 Long term (current) use of aspirin; Z79.899 Other long term (current) drug therapy; G89.29 Other chronic pain; H26.9 Unspecified cataract; Z88.8 Allergy status to other drugs, medicaments and biological substances; Z90.49 Acquired absence of other specified parts of digestive tract
CPT/HCPCS: 36415; 70542-TC; 70553-TC; 80048-TC; 80061-TC; 83735-TC; 84100-TC; 85025-TC; 85652-TC; 86140-TC; 87081-TC; 88305-TC; 88313-TC; 90732; 93880-TC; A4606; A9579; C9113; J0690; J2250; J2704; J2930; J3010; J3490; J7030; J7040; J7050; Q2036; Z7610

== ENCOUNTER 2017-09-25 20:14 | Emergency (ER) | payer BC ==
[~2017-09-25] VITALS: Ht 165.1 cm; Wt 65.8 kg
[~2017-09-25 20:14] MED LIST: ASPI-605 PO; SIMV20TA6 PO
[2017-09-25 20:22] VITALS: BP 115/70
[2017-09-25] MEDS ORDERED: ACETAMINOPHEN ES 500 MG TABLET ONE (21:41)
[2017-09-25] MEDS ORDERED: ACETAMINOPHEN ES 500 MG TABLET PO ONE (22:00)
== END 2017-09-26 00:19 | disposition home or self-care (01) ==
LOC: ER 20:18
DX: I50.9 Heart failure, unspecified (principal); J06.9 Acute upper respiratory infection, unspecified; E78.00 Pure hypercholesterolemia, unspecified; G89.29 Other chronic pain; M10.9 Gout, unspecified; Z79.82 Long term (current) use of aspirin
CPT/HCPCS: 71045; 87804; 99285; A4606; Z7610; 87400

== ENCOUNTER 2018-05-01 07:34 | Outpatient (CLI) | payer BC ==
[2018-05-01 08:21] LABS: BASOPHILS # (AUTO) 0.1 /CMM (0.0-0.2); BASOPHILS % (AUTO) 0.9 % (0.0-2.0); EOSINOPHILS % (AUTO) 5.4 % (0.0-6.0); HEMATOCRIT 39 % (39-51); HEMOGLOBIN 12.8 g/dL (13.5-17.5); LYMPHOCYTES # (AUTO) 2.4 /CMM (0.8-4.8); MEAN CORPUSCULAR HEMOGLOBIN 29 PG (26.0-33.0); MEAN CORPUSCULAR HGB CONC 33 g/dl (31.0-36.0); MEAN CORPUSCULAR VOLUME 89 fL (80-96); MONOCYTES # (AUTO) 0.7 /CMM (0.1-1.30); MONOCYTES % (AUTO) 8.4 % (2.0-12.0); NEUTROPHILS % (AUTO) 57.3 % (43.0-81.0); PLATELET COUNT (AUTO) 164 /CMM (150-450); RDW COEFFICIENT OF VARIATION 13.5 (11.5-15.0); RED BLOOD CELL COUNT(AUTO) 4.39 MIL/uL (4.5-6.0); WHITE BLOOD COUNT (AUTO) 8.6 K/uL (4.3-11.0)
[2018-05-01 08:25] LABS: APPEARANCE,URINE SL CLOUDY (CLEAR); BILIRUBIN,URINE NEGATIVE (NEGATIVE); BLOOD, URINE NEGATIVE Ery/uL (NEGATIVE); COLOR,URINE YELLOW (YELLOW); KETONES,URINE NEGATIVE (NEGATIVE); LEUKOCYTE ESTERASE ,URINE NEGATIVE (NEGATIVE); NITRITE, URINE NEGATIVE (NEGATIVE); PROTEIN,URINE NEGATIVE (NEGATIVE); UGLUCOSE NEGATIVE (NEGATIVE); UROBILINOGEN,URINE 0.2 EU/dL (0.2)
[2018-05-01 08:34] LABS: ALANINE AMINOTRANSFERASE 63 U/L (12-78); ALBUMIN 3.9 g/dL (3.4-5.0); ALKALINE PHOSPHATASE 119 U/L (46-116); ASPARTATE AMINOTRANSFERASE 52 U/L (15-37); BILIRUBIN,TOTAL 0.6 mg/dL (0.2-1.0); CARBON DIOXIDE 28 mmol/L (21-32); CHLORIDE 106 mmol/L (98-107); GLUCOSE 106 mg/dL (74-106); POTASSIUM 4.5 mmol/L (3.5-5.1); SODIUM SERUM 141 mmol/L (136-145); TOTAL PROTEIN, SERUM 8.3 g/dL (6.4-8.2); UREA NITROGEN, BLOOD 23 mg/dL (7-18)
[2018-05-01 08:41] LABS: IRON, SERUM 94 ug/dl (50-175); TOTAL IRON BINDING CAPACITY 295 ug/dl (250-450)
[2018-05-01 08:47] LABS: CHOLESTEROL 145 mg/dL (<200); FERRITIN 437 ng/mL (8-388); HDL CHOLESTEROL 46 mg/dL (40-60); LDL 85 mg/dL (0-99); PROSTATE SPECIFIC ANTIGEN SCR 1.49 ng/mL (0.00-4.00); THYROID STIMULATING HORMONE 1.664 uIU/mL (0.358-3.74); TRIGLYCERIDES 76 mg/dL (30-150)
[2018-05-04 12:14] LABS: *TESTOSTERONE, FREE (DIRECT) 1.2 pg/mL (6.6-18.1)
== END 2018-05-01 23:59 | disposition home or self-care (01) ==
LOC: LAB 07:34
PROVIDERS: ATTEND Legal Medicine
DX: Z00.01 Encounter for general adult medical examination with abnormal findings (principal); E78.5 Hyperlipidemia, unspecified; I10 Essential (primary) hypertension; Z79.82 Long term (current) use of aspirin; Z79.899 Other long term (current) drug therapy
CPT/HCPCS: 36415; 80053-TC; 80061-TC; 81000-TC; 82306; 82728-TC; 82746; 83540-TC; 84153-TC; 84402-TC; 84439-TC; 84443-TC; 85025-TC

== ENCOUNTER 2018-05-09 09:39 | Outpatient (CLI) | payer BC | END 2018-05-09 23:59 | disposition home or self-care (01) | LOC: US 09:39 | PROVIDERS: ATTEND Legal Medicine | DX: R94.5 Abnormal results of liver function studies (principal) | CPT/HCPCS: 76700-TC ==

== ENCOUNTER 2020-03-17 08:20 | Outpatient (CLI) | payer MEDICARE ==
[~2020-03-17 08:20] MED LIST changes: +SIMV-46 PO; -SIMV20TA6 PO
[2020-03-17 09:23] LABS: ALBUMIN 4.6 g/dL (3.4-5.0); CALCIUM, SERUM 9.5 mg/dL (8.5-10.1); CREATININE 0.9 mg/dL (0.6-1.3); POTASSIUM 3.9 mmol/L (3.5-5.1); TOTAL PROTEIN, SERUM 9.5 g/dL (6.4-8.2)
[2020-03-17 09:27] LABS: BASOPHILS # (AUTO) 0.1 /CMM (0.0-0.2); EOSINOPHILS % (AUTO) 5.6 % (0.0-6.0); HEMATOCRIT 42 % (39-51); HEMOGLOBIN 13.7 g/dL (13.5-17.5); LYMPHOCYTES # (AUTO) 2.8 /CMM (0.8-4.8); LYMPHOCYTES % (AUTO) 34.3 % (20.0-44.0); MEAN CORPUSCULAR HGB CONC 32 g/dl (31.0-36.0); MEAN CORPUSCULAR VOLUME 88 fL (80-96); MONOCYTES # (AUTO) 0.7 /CMM (0.1-1.30); MONOCYTES % (AUTO) 8.5 % (2.0-12.0); NEUTROPHILS # (AUTO) 4.2 /CMM (1.8-8.9); NEUTROPHILS % (AUTO) 50.6 % (43.0-81.0); PLATELET COUNT (AUTO) 193 /CMM (150-450); WHITE BLOOD COUNT (AUTO) 8.3 K/uL (4.3-11.0)
[2020-03-17 10:33] LABS: PROSTATE SPECIFIC ANTIGEN SCR 1.11 ng/mL (0.00-4.00); THYROID STIMULATING HORMONE 2.93 uIU/mL (0.358-3.74); URIC ACID 7.1 mg/dL (2.6-7.2)
[2020-03-17 11:12] LABS: APPEARANCE,URINE CLEAR (CLEAR); BILIRUBIN,URINE NEGATIVE (NEGATIVE); BLOOD, URINE NEGATIVE Ery/uL (NEGATIVE); COLOR,URINE YELLOW (YELLOW); KETONES,URINE NEGATIVE (NEGATIVE); LEUKOCYTE ESTERASE ,URINE NEGATIVE (NEGATIVE); NITRITE, URINE NEGATIVE (NEGATIVE); PROTEIN,URINE NEGATIVE (NEGATIVE); UGLUCOSE NEGATIVE (NEGATIVE); UROBILINOGEN,URINE 0.2 EU/dL (0.2)
== END 2020-03-17 23:59 | disposition home or self-care (01) ==
LOC: LAB 08:20
PROVIDERS: ATTEND Legal Medicine
DX: I12.9 Hypertensive chronic kidney disease with stage 1 through stage 4 chronic kidney disease, or unspecified chronic kidney disease (principal); E11.22 Type 2 diabetes mellitus with diabetic chronic kidney disease; N18.9 Chronic kidney disease, unspecified; E78.00 Pure hypercholesterolemia, unspecified; N40.0 Benign prostatic hyperplasia without lower urinary tract symptoms; E55.9 Vitamin D deficiency, unspecified; E03.9 Hypothyroidism, unspecified; R06.02 Shortness of breath; I70.0 Atherosclerosis of aorta; M41.85 Other forms of scoliosis, thoracolumbar region; Z00.00 Encounter for general adult medical examination without abnormal findings
CPT/HCPCS: 36415; 71046; 80053-TC; 80061-TC; 81000-TC; 82306; 84153-TC; 84402; 84403; 84439-TC; 84443-TC; 84550-TC; 85025-TC

== ENCOUNTER 2020-04-03 08:52 | Outpatient (CLI) | payer MEDICARE | END 2020-04-03 23:59 | disposition home or self-care (01) | LOC: LAB 08:52 | PROVIDERS: ATTEND Legal Medicine | DX: E88.09 Other disorders of plasma-protein metabolism, not elsewhere classified (principal) | CPT/HCPCS: 84155; 84165 ==

== ENCOUNTER 2023-01-30 09:55 | Emergency (ER) | payer MEDICARE ==
[~2023-01-30] VITALS: Ht 160 cm; Wt 65.8 kg
[2023-01-30] MEDS ORDERED: ACETAMINOPHEN ES 500 MG TABLET ONE (10:19)
[2023-01-30] MEDS ORDERED: ACETAMINOPHEN ES 500 MG TABLET PO ONE (10:30)
[2023-01-30 12:28] VITALS: BP 126/63
== END 2023-01-30 12:28 | disposition home or self-care (01) ==
LOC: ER 09:59
DX: S00.83XA Contusion of other part of head, initial encounter (principal); M54.50 Low back pain, unspecified; G89.29 Other chronic pain; Z98.890 Other specified postprocedural states; Z79.899 Other long term (current) drug therapy; Z88.1 Allergy status to other antibiotic agents; W17.89XA Other fall from one level to another, initial encounter; Y93.01 Activity, walking, marching and hiking; Y92.481 Parking lot as the place of occurrence of the external cause; Y99.8 Other external cause status
CPT/HCPCS: 70450-TC; 73080-TC; 73564-TC